=== PATIENT | female | born 1960 | race Native Hawaiian/Other Pacific Islander ===

== ENCOUNTER → 2017-12-31 | Outpatient (CLI) | payer BC ==
--- NOTE | 2017-12-31 22:39 | MR ---
EXAMINATION TYPE: MR brain wo/w con DATE OF EXAM: 12/31/2017 COMPARISON: NONE HISTORY: Post-traumatic headache TECHNIQUE: Multiplanar, multisequence images of the brain and brainstem is performed without and with IV contras t, utilizing 7.5 mL intravenous Gadavist . FINDINGS: Diffusion weighted images demonstrate no evidence of a recent infarct or other diffusion ab normality. There is no extra-axial fluid collection or significant white matter signal abnormality. The ventricular system and cisternal spaces are normal in size and appearance. The brain volume is age appropriate. T2*weighted images show no suspicious intraparenchymal blood product. Midline structures demonstrate normal morphology. The craniocervical junction appears within normal limits. Post contrast images demonstrate no abnormal enhancement. The dural venous sinuses appear pa tent. The visualized sinuses are clear and the globes are intact. IMPRESSION: No significant finding is seen to account for patient's symptoms.
== END | disposition home or self-care (01) ==
LOC: RADMRIMAIN 16:57
PROVIDERS: ATTEND Physician Assistant
DX: G44.329 Chronic post-traumatic headache, not intractable (principal)
CPT/HCPCS: 70553; A9585

== ENCOUNTER 2018-04-20 16:23 | Emergency (ER) | payer BC ==
[2018-04-20 16:34] VITALS: RESP 18
[2018-04-20] MEDS ORDERED: PANTOPRAZOLE 40 MG/10 ML VIAL IVP STA (16:57)
[2018-04-20] MEDS ORDERED: SODIUM CHLORIDE 0.9% 1,000 ML IV STA (16:57)
[2018-04-20 17:33] LABS: Basophils % (A) 0 %; Eosinophils # (A) 0.2 k/uL (0-0.7); Eosinophils % (A) 2 %; HCT 40.8 % (34.0-46.0); HGB 13.2 gm/dL (11.4-16.0); Lymphocytes # (A) 2.2 k/uL (1.0-4.8); Lymphocytes % (A) 23 %; MCH 26.9 pg (25.0-35.0); MCHC 32.3 g/dL (31.0-37.0); MCV 83.1 fL (80.0-100.0); Mean Platelet Volume 7.1; Monocytes # (A) 0.4 k/uL (0-1.0); Monocytes % (A) 4 %; Neutrophils # (A) 6.5 k/uL (1.3-7.7); Neutrophils % (A) 69 %; Platelet Count 294 k/uL (150-450); RBC 4.91 m/uL (3.80-5.40); WBC 9.5 k/uL (3.8-10.6)
[2018-04-20 17:37] LABS: Albumin 4.1 g/dL (3.5-5.0); Calcium 9.6 mg/dL (8.4-10.2); Potassium 4.3 mmol/L (3.5-5.1); Total Bilirubin 0.4 mg/dL (0.2-1.3); Total Protein 7.2 g/dL (6.3-8.2)
--- NOTE | 2018-04-20 17:51 | CT ---
EXAMINATION TYPE: CT abdomen pelvis w con DATE OF EXAM: 04/20/2018 COMPARISON: None HISTORY: lower abdominal pain, blood in stool CT DLP: 724.2 mGycm Automated exposure control for dose reduction was used. TECHNIQUE: Helical acquisition of images was performed from the lung bases through the pelvis. CONTRAST: Performed without Oral Contrast and with IV Contrast, patient injected with 100 mL of Isovue 300. FINDINGS: Lung bases are clear. There is no pleural effusion. There is subsegmental atelectasis at the lung bas es. There is no pericardial effusion. Liver spleen pancreas gallbladder appear normal. Gallbladder is contracted. Stomach appears normal. There is no adrenal mass. Kidneys show satisfactory contrast opacification. There is no hydronephrosi s. Ureters are not dilated. There is no retroperitoneal adenopathy. Bladder distends smoothly. There is no inguinal hernia. There is no free fluid in the pelvis. There is no evidence of thickened appendix. There is no mesente rebecca edema. There is no sign of free air. There is no ascites. There is hysterectomy noted. There is n o intestinal wall thickening. The bony structures are intact. IMPRESSION: NEGATIVE CT SCAN OF THE ABDOMEN AND PELVIS. MINIMAL SUBSEGMENTAL ATELECTASIS AT THE LUNG BASES.
--- NOTE | 2018-04-20 17:58 | ED ---
GI Bleed HPI - General Chief complaint: GI Bleed Stated complaint: Blood in stool Time Seen by Provider: 04/20/18 16:56 Source: patient Mode of arrival: ambulatory Limitations: no limitations - History of Present Illness Initial comments: 57-year-old female presenting today for chief complaint of lower abdominal cramping and blood in stools. Patient states she has had some mild lower abdominal cramping, she states she's also had bloody stools for the past 3 days. She states is not large amount however she notes that in the bowel movement. Patient denies any chase large amounts of blood or diarrhea. Patient denies any constipation. Patient denies any vomiting fever chills night sweats chest pain dysuria dyspnea exertion. Patient denies any chills, night sweats, cold intolerance, palpitations. Patient's last colonoscopy 3 years prior performed [address] Antoine. She denied any significant abnormalities. Remaining review of systems negative, patient denies drinking history, dizziness , hematemesis, melena, back pain, upper abdominal pain, nausea, numbness or tingling, dysuria or hematuria, vaginal bleeding, headaches or visual changes, or any other complaints. Upon arrival patient appears well. - Related Data Home Medications Medication Instructions Recorded Confirmed No Known Home Medications 08/02/15 08/02/15 Allergies Allergy/AdvReac Type Severity Reaction Status Date / Time caffeine Allergy Chest Pain Verified 04/20/18 16:29 Penicillins Allergy Rash/Hives Verified 04/20/18 16:29 Review of Systems ROS Statement: Those systems with pertinent positive or pertinent negative responses have been documented in the HPI. ROS Other: All systems not noted in ROS Statement are negative. Past Medical History Past Medical History: No Reported History History of Any Multi-Drug Resistant Organisms: None Reported Past Surgical History: Hysterectomy Past Anesthesia/Blood Transfusion Reactions: No Reported Reaction Past Psychological History: No Psychological Hx Reported Smoking Status: Former smoker Past Alcohol Use History: None Reported Past Drug Use History: None Reported - Past Family History Mother Family Medical History: Deep Vein Thrombosis (DVT) General Exam - General Exam Comments Initial Comments: General: The patient is awake and alert, in no distress, and does not appear acutely ill. Eye: Pupils are equal, round and reactive to light, extra-ocular movements are intact. No nystagmus. There is normal conjunctiva bilaterally. No signs of icterus. Ears, nose, mouth and throat: There are moist mucous membranes and no oral lesions. Neck: The neck is supple, there is no tenderness or JVD. Cardiovascular: There is a regular rate and rhythm. No murmur, rub or gallop is appreciated. Respiratory: Lungs are clear to auscultation, respirations are non-labored, breath sounds are equal. No wheezes, stridor, rales, or rhonchi. Gastrointestinal: Soft, non-distended, abdomen without masses or organomegaly noted. Mild tenderness to b/l lower abdominal region. There is no rebound or guarding present. No CVA tenderness. Bowel sounds are unremarkable. Musculoskeletal: Normal ROM, no tenderness. Strength 5/5. Sensation intact. Pulses equal bilaterally 2+. Neurological: A&O x 3. CN II-XII intact, There are no obvious motor or sensory deficits. Coordination appears grossly intact. Speech is normal. Skin: Skin is warm and dry and no rashes or lesions are noted. Psychiatric: Cooperative, appropriate mood & affect, normal judgment. Limitations: no limitations Course Vital Signs 04/20/18 04/20/18 16:30 18:45 Temperature 98.2 F 98.8 F Pulse Rate 83 66 Respiratory 18 18 Rate Blood Pressure 128/84 116/79 O2 Sat by Pulse 98 98 Oximetry Medical Decision Making - Medical Decision Making Appearing 57-year-old female. Rectal exam revealed hemorrhoids no palpable thrombosis. At the 3 o'clock position. No chase blood. Occult blood negative. Hemoglobin stable. Vital signs within normal limits. Patient estimates the pain on abdominal exam. CT negative for any diverticulosis or causes of rectal bleeding. This time feel patient is stable for discharge with outpatient follow-up with gastroenterology I did recommend repeat colonoscopy. Patient is to return for worsening bleeding or other concerning symptoms including worsening abdominal pain patient verbalizes understanding. I did discuss the case attending provider Dr. Trejo who is agreeable with plan and discharged. Patient is agreeable discharged and I question at this time. - Lab Data Result diagrams: 04/20/18 16:45 04/20/18 16:45 Lab Results 04/20/18 04/20/18 04/20/18 Range/Units 16:45 16:45 16:45 WBC 9.5 (3.8-10.6) k/uL RBC 4.91 (3.80-5.40) m/uL Hgb 13.2 (11.4-16.0) gm/dL Hct 40.8 (34.0-46.0) % MCV 83.1 (80.0-100.0) fL MCH 26.9 (25.0-35.0) pg MCHC 32.3 (31.0-37.0) g/dL RDW 14.0 (11.5-15.5) % Plt Count 294 (150-450) k/uL Neutrophils % 69 % Lymphocytes % 23 % Monocytes % 4 % Eosinophils % 2 % Basophils % 0 % Neutrophils # 6.5 (1.3-7.7) k/uL Lymphocytes # 2.2 (1.0-4.8) k/uL Monocytes # 0.4 (0-1.0) k/uL Eosinophils # 0.2 (0-0.7) k/uL Basophils # 0.0 (0-0.2) k/uL APTT 23.6 (22.0-30.0) sec Sodium 139 (137-145) mmol/L Potassium 4.3 (3.5-5.1) mmol/L Chloride 106 (98-107) mmol/L Carbon Dioxide 24 (22-30) mmol/L Anion Gap 9 mmol/L BUN 28 H (7-17) mg/dL Creatinine 0.97 (0.52-1.04) mg/dL Est GFR (CKD-EPI)AfAm 75 (>60 ml/min/1.73 sqM) Est GFR (CKD-EPI)NonAf 65 (>60 ml/min/1.73 sqM) Glucose 94 (74-99) mg/dL Plasma Lactic Acid Jason (0.7-2.0) mmol/L Calcium 9.6 (8.4-10.2) mg/dL Total Bilirubin 0.4 (0.2-1.3) mg/dL AST 22 (14-36) U/L ALT 28 (9-52) U/L Alkaline Phosphatase 74 (38-126) U/L Troponin I (0.000-0.034) ng/mL Total Protein 7.2 (6.3-8.2) g/dL Albumin 4.1 (3.5-5.0) g/dL Stool Occult Blood (Negative) 04/20/18 04/20/18 04/20/18 Range/Units 16:45 16:45 17:00 WBC (3.8-10.6) k/uL RBC (3.80-5.40) m/uL Hgb (11.4-16.0) gm/dL Hct (34.0-46.0) % MCV (80.0-100.0) fL MCH (25.0-35.0) pg MCHC (31.0-37.0) g/dL RDW (11.5-15.5) % Plt Count (150-450) k/uL Neutrophils % % Lymphocytes % % Monocytes % % Eosinophils % % Basophils % % Neutrophils # (1.3-7.7) k/uL Lymphocytes # (1.0-4.8) k/uL Monocytes # (0-1.0) k/uL Eosinophils # (0-0.7) k/uL Basophils # (0-0.2) k/uL APTT (22.0-30.0) sec Sodium (137-145) mmol/L Potassium (3.5-5.1) mmol/L Chloride (98-107) mmol/L Carbon Dioxide (22-30) mmol/L Anion Gap mmol/L BUN (7-17) mg/dL Creatinine (0.52-1.04) mg/dL Est GFR (CKD-EPI)AfAm (>60 ml/min/1.73 sqM) Est GFR (CKD-EPI)NonAf (>60 ml/min/1.73 sqM) Glucose (74-99) mg/dL Plasma Lactic Acid Jason 0.8 (0.7-2.0) mmol/L Calcium (8.4-10.2) mg/dL Total Bilirubin (0.2-1.3) mg/dL AST (14-36) U/L ALT (9-52) U/L Alkaline Phosphatase (38-126) U/L Troponin I <0.012 (0.000-0.034) ng/mL Total Protein (6.3-8.2) g/dL Albumin (3.5-5.0) g/dL Stool Occult Blood Negative (Negative) - EKG Data EKG Comments: A 12-lead EKG was performed and shows the following: Rate is 66bpm, and rhythm is normal sinus. There are normal QRS complexes and normal R-wave progression. ST segments have no elevation or depression, and MD segments appear normal. MD interval 158 ms, QR sikh 84 ms, QT/QTC 416/436 ms. Nonspecific T-wave abnormality. Disposition Clinical Impression: Rectal bleeding Disposition: HOME SELF-CARE Condition: Good Instructions (If sedation given, give patient instructions): Rectal Bleeding ( ED) Additional Instructions: Please use medication as discussed. Please follow-up with family doctor in the next 2 days, these follow-up with gastroenterology as discussed. Please return to emergency room if the symptoms increase or worsen or for any other concerns. Is patient prescribed a controlled substance at d/c from ED?: No Referrals: Dwayne Quintana MD [Primary Care Provider] - 1-2 days Priscilla Antoine MD [STAFF PHYSICIAN] - 1-2 days Time of Disposition: 17:57
[2018-04-20 18:55] VITALS: BP 116/79; PULSE 66; TEMP 98.8
== END 2018-04-20 18:45 | disposition home or self-care (01) ==
LOC: EC 16:23
DX: K62.5 Hemorrhage of anus and rectum (principal); K64.9 Unspecified hemorrhoids; Z87.891 Personal history of nicotine dependence; Z88.0 Allergy status to penicillin; Z91.018 Allergy to other foods
CPT/HCPCS: 36415; 80053; 83605; 84484; 85025; 85730; 82272; 74177; 99285; 96374; 96361; C9113; Q9967; 99284

== ENCOUNTER → 2020-02-15 | Outpatient (CLI) | payer BC | END | disposition home or self-care (01) | LOC: LABWHC1 12:30 | PROVIDERS: ATTEND Emergency Medicine | DX: Z20.828 Contact with and (suspected) exposure to other viral communicable diseases (principal) | CPT/HCPCS: U0003; C9803 ==

== ENCOUNTER 2020-03-29 14:15 | Observation (INO) | payer BC ==
[2020-03-29] MEDS ORDERED: ASPIRIN 81 MG PO STA (14:52)
[2020-03-29] MEDS ORDERED: NITROGLYCERIN OINT 1 INCH/GM PACKET TOPICAL STA (14:52)
--- NOTE | 2020-03-29 15:02 | ED ---
General Adult HPI - General Chief complaint: Chest Pain Stated complaint: Chest pain Time Seen by Provider: 03/29/20 14:20 Source: patient, RN notes reviewed, old records reviewed Mode of arrival: ambulatory Limitations: no limitations - History of Present Illness Initial comments: This a 59-year-old female presents emergency Department with no significant past medical history. Patient denies any family history of heart disease. Patient comes in today because she had an episode of chest pain last week which also she states is associated with the veins in her hands disappearing. She states today she had multiple episodes of chest pain and again she feels as though the veins in her hands also disappeared when this occurs. Patient states she short of breath and also feels lightheaded when this occurs. Patient denies any recent fever chills or cough per patient denies any palpitations. Patient denies any abdominal pain patient denies any back pain patient denies any nausea vomiting diarrhea. Patient denies any swelling to legs or calf tenderness. Patient states currently she is asymptomatic - Related Data Home Medications Medication Instructions Recorded Confirmed No Known Home Medications 08/02/15 03/29/20 Allergies Allergy/AdvReac Type Severity Reaction Status Date / Time caffeine Allergy Chest Pain Verified 03/29/20 16:30 Penicillins Allergy Rash/Hives Verified 03/29/20 16:30 Review of Systems ROS Statement: Those systems with pertinent positive or pertinent negative responses have been documented in the HPI. ROS Other: All systems not noted in ROS Statement are negative. Past Medical History Past Medical History: No Reported History History of Any Multi-Drug Resistant Organisms: None Reported Past Surgical History: Hysterectomy Past Anesthesia/Blood Transfusion Reactions: No Reported Reaction Past Psychological History: No Psychological Hx Reported Past Alcohol Use History: Occasional Past Drug Use History: None Reported - Past Family History Mother Family Medical History: Deep Vein Thrombosis (DVT) General Exam - General Exam Comments Initial Comments: GENERAL: Patient is well-developed and well-nourished. Patient is nontoxic and well- hydrated and is in no acute distress. ENT: Neck is soft and supple. No significant lymphadenopathy is noted. Oropharynx is clear. Moist mucous membranes. Neck has full range of motion without eliciting any pain. EYES: The sclera were anicteric and conjunctiva were pink and moist. Extraocular movements were intact and pupils were equal round and reactive to light. Eyelids were unremarkable. PULMONARY: Unlabored respirations. Good breath sounds bilaterally. No audible rales rhonchi or wheezing was noted. CARDIOVASCULAR: There is a regular rate and rhythm without any murmurs gallops or rubs. ABDOMEN: Soft and nontender with normal bowel sounds. SKIN: Skin is clear with no lesions or rashes and otherwise unremarkable. NEUROLOGIC: Patient is alert and oriented x3. Cranial nerves II through XII are grossly intact. Motor and sensory are also intact. Normal speech, volume and content. Symmetrical smile. MUSCULOSKELETAL: Normal extremities with adequate strength and full range of motion. LYMPHATICS: No significant lymphadenopathy is noted PSYCHIATRIC: Normal psychiatric evaluation. Limitations: no limitations Course Vital Signs 03/29/20 03/29/20 03/29/20 14:22 14:55 16:37 Temperature 98 F 98 F Pulse Rate 72 69 Pulse Rate [ 60 [employer] ] Respiratory 18 16 18 Rate Blood Pressure 167/102 140/86 O2 Sat by Pulse 100 97 Oximetry Medical Decision Making - Medical Decision Making EKG shows normal sinus rhythm at 65 bpm WA interval 156 QRS is 80 QT interval 400 QTC is 416. Patient's EKG shows no ST segment elevation or depression. Chest x-ray shows no acute normalities. I spoke with Dr. Ortiz he agrees to admit the patient admitted the patient wrote admitting orders I consult cardiology. - Lab Data Result diagrams: 03/29/20 15:10 03/29/20 15:10 Lab Results 03/29/20 03/29/20 03/29/20 Range/Units 15:10 15:10 15:10 WBC 6.5 (3.8-10.6) k/uL RBC 4.79 (3.80-5.40) m/uL Hgb 13.0 (11.4-16.0) gm/dL Hct 40.0 (34.0-46.0) % MCV 83.4 (80.0-100.0) fL MCH 27.2 (25.0-35.0) pg MCHC 32.6 (31.0-37.0) g/dL RDW 13.6 (11.5-15.5) % Plt Count 253 (150-450) k/uL MPV 7.1 Neutrophils % 58 % Lymphocytes % 32 % Monocytes % 6 % Eosinophils % 1 % Basophils % 1 % Neutrophils # 3.8 (1.3-7.7) k/uL Lymphocytes # 2.1 (1.0-4.8) k/uL Monocytes # 0.4 (0-1.0) k/uL Eosinophils # 0.1 (0-0.7) k/uL Basophils # 0.0 (0-0.2) k/uL PT 9.9 (9.0-12.0) sec INR 0.9 (<1.2) APTT 23.2 (22.0-30.0) sec Sodium 136 L (137-145) mmol/L Potassium 4.1 (3.5-5.1) mmol/L Chloride 104 (98-107) mmol/L Carbon Dioxide 22 (22-30) mmol/L Anion Gap 10 mmol/L BUN 24 H (7-17) mg/dL Creatinine 0.76 (0.52-1.04) mg/dL Est GFR (CKD-EPI)AfAm >90 (>60 ml/min/1.73 sqM) Est GFR (CKD-EPI)NonAf 87 (>60 ml/min/1.73 sqM) Glucose 100 H (74-99) mg/dL Calcium 9.2 (8.4-10.2) mg/dL Magnesium 2.1 (1.6-2.3) mg/dL Total Bilirubin 0.4 (0.2-1.3) mg/dL AST 33 (14-36) U/L ALT 21 (4-34) U/L Alkaline Phosphatase 86 (38-126) U/L Troponin I (0.000-0.034) ng/mL Total Protein 7.3 (6.3-8.2) g/dL Albumin 4.3 (3.5-5.0) g/dL 03/29/20 Range/Units 15:10 WBC (3.8-10.6) k/uL RBC (3.80-5.40) m/uL Hgb (11.4-16.0) gm/dL Hct (34.0-46.0) % MCV (80.0-100.0) fL MCH (25.0-35.0) pg MCHC (31.0-37.0) g/dL RDW (11.5-15.5) % Plt Count (150-450) k/uL MPV Neutrophils % % Lymphocytes % % Monocytes % % Eosinophils % % Basophils % % Neutrophils # (1.3-7.7) k/uL Lymphocytes # (1.0-4.8) k/uL Monocytes # (0-1.0) k/uL Eosinophils # (0-0.7) k/uL Basophils # (0-0.2) k/uL PT (9.0-12.0) sec INR (<1.2) APTT (22.0-30.0) sec Sodium (137-145) mmol/L Potassium (3.5-5.1) mmol/L Chloride (98-107) mmol/L Carbon Dioxide (22-30) mmol/L Anion Gap mmol/L BUN (7-17) mg/dL Creatinine (0.52-1.04) mg/dL Est GFR (CKD-EPI)AfAm (>60 ml/min/1.73 sqM) Est GFR (CKD-EPI)NonAf (>60 ml/min/1.73 sqM) Glucose (74-99) mg/dL Calcium (8.4-10.2) mg/dL Magnesium (1.6-2.3) mg/dL Total Bilirubin (0.2-1.3) mg/dL AST (14-36) U/L ALT (4-34) U/L Alkaline Phosphatase (38-126) U/L Troponin I <0.012 (0.000-0.034) ng/mL Total Protein (6.3-8.2) g/dL Albumin (3.5-5.0) g/dL Disposition Clinical Impression: Chest pain Disposition: ADMITTED IP TO THIS [facility] Referrals: Gerald Cardenas Jr, [Primary Care Provider] - 1-2 days Time of Disposition: 16:49
[2020-03-29 15:20] LABS: Basophils % (A) 1 %; Eosinophils # (A) 0.1 k/uL (0-0.7); Eosinophils % (A) 1 %; Lymphocytes # (A) 2.1 k/uL (1.0-4.8); Lymphocytes % (A) 32 %; MCH 27.2 pg (25.0-35.0); MCHC 32.6 g/dL (31.0-37.0); MCV 83.4 fL (80.0-100.0); Mean Platelet Volume 7.1; Monocytes # (A) 0.4 k/uL (0-1.0); Monocytes % (A) 6 %; Neutrophils # (A) 3.8 k/uL (1.3-7.7); Neutrophils % (A) 58 %; Platelet Count 253 k/uL (150-450); RBC 4.79 m/uL (3.80-5.40); RDW 13.6 % (11.5-15.5); WBC 6.5 k/uL (3.8-10.6)
[2020-03-29 15:30] LABS: ALT 21 U/L (4-34); AST 33 U/L (14-36); African American GFR (CKD) >90 (>60 ml/min/1.73 sqM); Albumin 4.3 g/dL (3.5-5.0); Alkaline Phosphatase 86 U/L (38-126); Anion Gap 10 mmol/L; Blood Urea Nitrogen 24 mg/dL (7-17); Calcium 9.2 mg/dL (8.4-10.2); Carbon Dioxide 22 mmol/L (22-30); Chloride 104 mmol/L (98-107); Glucose 100 mg/dL (74-99); Magnesium 2.1 mg/dL (1.6-2.3); Non-African American GFR(CKD) 87 (>60 ml/min/1.73 sqM); Potassium 4.1 mmol/L (3.5-5.1); Sodium 136 mmol/L (137-145); Total Bilirubin 0.4 mg/dL (0.2-1.3); Total Protein 7.3 g/dL (6.3-8.2)
[2020-03-29 15:33] LABS: INR 0.9 (<1.2); Partial Thromboplastin Time 23.2 sec (22.0-30.0); Prothrombin Time 9.9 sec (9.0-12.0)
--- NOTE | 2020-03-29 15:34 | XR ---
EXAMINATION TYPE: XR chest 2V DATE OF EXAM: 03/29/2020 COMPARISON: NONE TECHNIQUE: PA and lateral views submitted. HISTORY: Chest pain FINDINGS: The lungs are clear and there is no pneumothorax, pleural effusion, or focal pneumonia. Hyperinflat ion of the lungs. Coarsened interstitium. Mild cardiomegaly. IMPRESSION: 1. Cardiomegaly correlate for COPD. Coarsened interstitium could reflect chronic interstitial lung di sease or bronchitis. No prior exams available. Underlying interstitial pneumonitis not excluded..
[2020-03-29] MEDS ORDERED: NITROGLYCERIN SL TABS 0.4 MG TAB SUBLINGUAL PRN (16:50)
[2020-03-29] MEDS: NITROGLYCERIN OINT 1 INCH/GM PACKET TOPICAL SCH ×2 (17:59→23:11)
[2020-03-29] MEDS ORDERED: ACETAMINOPHEN TAB 325 MG TAB PO PRN (21:21)
[2020-03-30] MEDS: NITROGLYCERIN OINT 1 INCH/GM PACKET TOPICAL SCH (05:53)
[2020-03-30 07:36] VITALS: RESP 16; TEMP 98.2
[2020-03-30] MEDS ORDERED: ASPIRIN 325 MG TAB PO SCH (09:00)
[2020-03-30] MEDS ORDERED: PANTOPRAZOLE 40 MG/10 ML VIAL IVP SCH (09:15)
[2020-03-30 09:18] LABS: Chol/HDL Ratio 3.51; LDL Cholesterol,Calculated 99.8 mg/dL (0.0-131.0); VLDL Calculation 23.2 mg/dL (5.00-40.00)
--- NOTE | 2020-03-30 09:27 | P.CRDCN ---
History of Present Illness History of present illness: HISTORY OF PRESENTING ILLNESS This is a pleasant 59-year-old female past medical history significant for former nicotine dependence. 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 We have been asked to see in consultation for chest pain. For the previous couple of days she has been experiencing intermittent episodes of bilateral arm heaviness, shortness of breath, difficulty taking in a deep breath and tightness in the chest. The tightness in the chest seems to be mostly associated with deep inspiration. The pain is not related to activity or exertion. The discomfort is not reproducible on palpation. She also describes feeling pain in her hands that she describes as "pain in my veins" she states at times it seems as though her veins disappear. She denies nausea, vomiting, dizziness or palpitations. DIAGNOSTICS EKG reveals has mechanism with T-wave inversions in the anterior leads, similar to previous EKG in 2019. Telemetry tracings indicate sinus mechanism with no acute arrhythmia Chest xray coarsened interstitium could reflect chronic interstitial lung disease or bronchitis. Laboratory reviewed, CBC unremarkable, sodium 136, potassium 4.1, creatinine 0.76, cardiac enzymes negative 3, LDL 99 and HDL 49. She takes no daily cardiac medications. REVIEW OF SYSTEMS At the time of my exam: CONSTITUTIONAL: Denies fever or chills. CARDIOVASCULAR: Denies chest pain, shortness of breath, orthopnea, PND or palp itations. RESPIRATORY: Denies cough. GASTROINTESTINAL: Denies abdominal pain, diarrhea, constipation, nausea or vomiting. MUSCULOSKELETAL: Denies myalgias. NEUROLOGIC: Denies numbness, tingling, headacbe or weakness. ENDOCRINE: Denies fatigue, weight change, polydipsia or polyurina. GENITOURINARY: Denies burning, hematuria or urgency with micturation. HEMATOLOGIC: Denies history of anemia or bleeding. PHYSICAL EXAMINATION Blood pressure 110/77 heart rate 59 afebrile and maintaining oxygen saturation on room air. CONSTITUTIONAL: No apparent distress. HEENT: Head is normocephalic. Pupils are equal, round. Sclerae anicteric. Mucous membranes of the mouth are moist. No JVD. No carotid bruit. CHEST EXAMINATION: Lungs are clear to auscultation. No chest wall tenderness is noted on palpation or with deep breathing. HEART EXAMINATION: Regular rate and rhythm. S1, S2 heard. No murmurs, gallops or rub. ABDOMEN: Soft, nontender. Positive bowel sounds. EXTREMITIES: 2+ peripheral pulses, no lower extremity edema and no calf tenderness. NEUROLOGIC EXAMINATION: Patient is awake, alert and oriented x3. ASSESSMENT Chest pain, atypical for angina Possible bronchitis PLAN An acute coronary event has been ruled out. Obtain 2-D echocardiogram and Doppler study to assess cardiac structure and function. Perform stress echocardiogram to assess for stress-induced cardiac ischemia. If stress test is normal she may be discharged from a cardiac perspective. Thank you kindly for this consultation. Nurse Practitioner note has been reviewed, I agree with a documented findings and plan of care. Patient was seen and examined. Past Medical History Past Medical History: No Reported History History of Any Multi-Drug Resistant Organisms: None Reported Past Surgical History: Hysterectomy Past Anesthesia/Blood Transfusion Reactions: No Reported Reaction Past Psychological History: No Psychological Hx Reported Smoking Status: Former smoker Past Alcohol Use History: Occasional Additional Past Alcohol Use History / Comment(s): quit smoking 4 years ago, was social smoker for 10 years Past Drug Use History: None Reported - Past Family History Mother Family Medical History: Deep Vein Thrombosis (DVT) Medications and Allergies Home Medications Medication Instructions Recorded Confirmed Type No Known Home Medications 08/02/15 03/29/20 History Allergies Allergy/AdvReac Type Severity Reaction Status Date / Time caffeine Allergy Chest Pain Verified 03/29/20 16:30 Penicillins Allergy Rash/Hives Verified 03/29/20 16:30 Physical Exam Vitals: Vital Signs Temp Pulse Pulse Pulse Resp BP BP 03/30/20 07:00 98.2 F 59 L 16 110/70 03/30/20 02:00 97.8 F 66 18 97/59 03/29/20 20:00 97.9 F 95 18 121/78 03/29/20 18:34 66 16 129/86 03/29/20 17:22 97.9 F 64 18 121/78 03/29/20 16:37 98 F 69 18 140/86 03/29/20 14:55 60 16 03/29/20 14:22 98 F 72 18 167/102 Pulse Ox 03/30/20 07:00 96 03/30/20 02:00 95 03/29/20 20:00 97 03/29/20 18:34 100 03/29/20 17:22 95 03/29/20 16:37 97 03/29/20 14:55 03/29/20 14:22 100 Intake and Output 03/29/20 03/30/20 03/30/20 22:59 06:59 14:59 Intake Total 540 Balance 540 Intake: Oral 540 Other: Voiding Method Toilet Toilet Toilet # Voids 2 1 Weight 73.482 kg Results 03/29/20 15:10 03/29/20 15:10 Cardiac Enzymes 03/29/20 03/29/20 03/29/20 Range/Units 15:10 15:10 18:15 AST 33 (14-36) U/L Troponin I <0.012 <0.012 (0.000-0.034) ng/mL 03/29/20 Range/Units 21:00 AST (14-36) U/L Troponin I <0.012 (0.000-0.034) ng/mL Coagulation 03/29/20 Range/Units 15:10 PT 9.9 (9.0-12.0) sec APTT 23.2 (22.0-30.0) sec CBC 03/29/20 Range/Units 15:10 WBC 6.5 (3.8-10.6) k/uL RBC 4.79 (3.80-5.40) m/uL Hgb 13.0 (11.4-16.0) gm/dL Hct 40.0 (34.0-46.0) % Plt Count 253 (150-450) k/uL Comprehensive Metabolic Panel 03/29/20 Range/Units 15:10 Sodium 136 L (137-145) mmol/L Potassium 4.1 (3.5-5.1) mmol/L Chloride 104 (98-107) mmol/L Carbon Dioxide 22 (22-30) mmol/L BUN 24 H (7-17) mg/dL Creatinine 0.76 (0.52-1.04) mg/dL Glucose 100 H (74-99) mg/dL Calcium 9.2 (8.4-10.2) mg/dL AST 33 (14-36) U/L ALT 21 (4-34) U/L Alkaline Phosphatase 86 (38-126) U/L Total Protein 7.3 (6.3-8.2) g/dL Albumin 4.3 (3.5-5.0) g/dL Current Medications Generic Name Dose Route Start Last Admin Trade Name Freq PRN Reason Stop Dose Admin Acetaminophen 650 mg 03/29/20 21:21 03/29/20 21:52 Acetaminophen Tab 325 Mg Tab PO 650 mg Q6HR PRN Administration Fever and/ or Pain Aspirin 325 mg 03/30/20 09:00 Aspirin 325 Mg Tab PO DAILY SUMMER Nitroglycerin 0.4 mg 03/29/20 16:50 Nitroglycerin Sl Tabs 0.4 Mg Tab SUBLINGUAL Q5M PRN Chest Pain Nitroglycerin 1 inch 03/29/20 18:00 03/30/20 05:53 Nitroglycerin Oint 1 Inch/Gm Packet TOPICAL Not Given Q6HR SUMMER Intake and Output 03/29/20 03/30/20 03/30/20 22:59 06:59 14:59 Intake Total 540 Balance 540 Intake: Oral 540 Other: Voiding Method Toilet Toilet Toilet # Voids 2 1 Weight 73.482 kg 03/29/20 15:10 03/29/20 15:10
--- NOTE | 2020-03-30 10:55 | ECHOF ---
Referral Reason:cp MEASUREMENTS -------- HEIGHT: 165.1 cm WEIGHT: 73.5 kg BP: RVIDd: 3.1 cm (< 3.3) IVSd: 1.1 cm (0.6 - 1.1) LVIDd: 4.6 cm (3.9 - 5.3) LVPWd: 1.2 cm (0.6 - 1.1) IVSs: 1.5 cm LVIDs: 3.2 cm LVPWs: 1.4 cm LAESV Index (A-L): 23.54 ml/m Ao Diam: 3.2 cm (2.0 - 3.7) AV Cusp: 1.7 cm (1.5 - 2.6) MV EXCURSION: 11.106 mm (> 18.000) MV EF SLOPE: 66 mm/s (70 - 150) EPSS: 0.5 cm MV E Tanner: 0.66 m/s MV DecT: 227 ms MV A Tanner: 0.65 m/s MV E/A Ratio: 1.02 RAP: 5.00 mmHg RVSP: 24.79 mmHg FINDINGS -------- Sinus rhythm. This was a technically adequate study. LV size, wall thickness and systolic function are normal, with an EF greater than 55%. The left janna tricular size is normal. The diastolic filling pattern is normal for the age of the patient 12.19. The right ventricle is normal in size. Normal LA size by volume 22+/-6 ml/m2. The right atrial size is normal. The aortic valve is trileaflet, and appears structurally normal. No aortic stenosis or regurgitation. The mitral valve is normal. Mild mitral regurgitation is present. The tricuspid valve appears structurally normal. Mild tricuspid regurgitation present. Right vent ricular systolic pressure is normal at < 35 mmHg. There is no pulmonic regurgitation present. There is no pericardial effusion. CONCLUSIONS -------- 1. LV size, wall thickness and systolic function are normal, with an EF greater than 55%. 2. Normal LA size by volume 22+/-6 ml/m2. 3. The aortic valve is trileaflet, and appears structurally normal. No aortic stenosis or regurgitati on. 4. Mild mitral regurgitation is present. 5. Mild tricuspid regurgitation present. 6. There is no pericardial effusion. SALES OFFICE MANAGER: Taina Ibarra RDCS
[2020-03-30] MEDS ORDERED: LEVOFLOXACIN 500MG-D5W PMX 500 MG in DEXTROSE/WATER 1 100ML.BAG IVPB SCH (11:00)
--- NOTE | 2020-03-30 12:12 | CT ---
EXAMINATION TYPE: CT brain wo con DATE OF EXAM: 03/30/2020 COMPARISON: None HISTORY: Posterior headache, ongoing CT DLP: 1017.90 mGycm Automated exposure control for dose reduction was used. FINDINGS: Ventricular system midline. No acute intracranial hemorrhage or mass effect. No midline shift. Calvar ium intact. Cerebellar tonsils low-lying in position at the level of foramen magnum. IMPRESSION: NO ACUTE HEMORRHAGE OR MASS EFFECT. IF SYMPTOMS PERSIST CONSIDER MRI.
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
[2020-03-30 14:04] VITALS: BP 91/58
[2020-03-30 14:08] VITALS: PULSE 60
--- NOTE | 2020-03-30 14:12 | ECHOS ---
STRESS ECHOCARDIOGRAM LUMASON: N/A Vial INDICATIONS: Chest pain MEDICATIONS: BASELINE HEART RATE: 65 BASELINE BLOOD PRESSURE: 127/86 MAXIMUM HEART RATE: 148 MAXIMUM BLOOD PRESSURE: 170/96 85% MPHR: 137 100% MPHR: 161 METS: 10.3 MAXIMUM STAGE REACHED: 3 TOTAL EXERCISE TIME: 9 minutes CLINICAL INFORMATION: Baseline rhythm is sinus mechanism, rate 65, normal axis, T-wave inversion anteriorly. Baseline blood pressure 127/86 mmHg. Patient exercised on Choco protocol for 9 minutes reaching peak rate 148 beats per minute which is equal to 92% of maximum predicted heart rate. Peak blood pressure 170/96 mmHg. Test was terminated secondary to fatigue. There was no chest pain. Electrocardiograph monitoring revealed no evidence of diagnostic ischemic ST deviation. Baseline echocardiogram revealed normal wall motion. At peak exercise, there was normal wall motion augmentation with no hypokinesis or dyskinesis. CONCLUSION: 1. Average exercise tolerance with nondiagnostic electrocardiograph stress testing secondary to baseline EKG abnormality. 2. Normal stress echocardiogram with no evidence of stress-induced ischemia. MMODL / IJN: [id number] /
[2020-03-31] MEDS ORDERED: ASPIRIN 81 MG PO SCH (09:00)
== END 2020-03-30 15:13 | disposition home or self-care (01) ==
LOC: EC 14:15 → 6NMEDSUR 16:50
PROVIDERS: ADMIT Family Medicine; ATTEND Family Medicine
DX: R07.89 Other chest pain (principal); R42 Dizziness and giddiness; M79.641 Pain in right hand; M79.642 Pain in left hand; M54.2 Cervicalgia; R51.9 Headache, unspecified; M25.572 Pain in left ankle and joints of left foot; M25.571 Pain in right ankle and joints of right foot; E66.9 Obesity, unspecified; Z68.27 Body mass index [BMI] 27.0-27.9, adult; J44.9 Chronic obstructive pulmonary disease, unspecified; Z87.891 Personal history of nicotine dependence; Z87.828 Personal history of other (healed) physical injury and trauma; Z88.0 Allergy status to penicillin; Z91.018 Allergy to other foods; Z90.710 Acquired absence of both cervix and uterus; Z82.49 Family history of ischemic heart disease and other diseases of the circulatory system; Z20.822 Contact with and (suspected) exposure to COVID-19
CPT/HCPCS: 96374; 93005 ×2; 99285; 36415; 93306; 93351; 80061; 80053; 83735; 84484; 85025; 85610; 85730; 87635; 71046; 70450; G0378 ×2; C9113

== ENCOUNTER → 2020-04-19 | Outpatient (CLI) | payer BC | END | disposition home or self-care (01) | LOC: LABWHC1 16:41 | PROVIDERS: ATTEND Emergency Medicine | DX: Z20.822 Contact with and (suspected) exposure to COVID-19 (principal) | CPT/HCPCS: U0003; C9803; U0005 ==

== ENCOUNTER → 2021-04-06 | Outpatient (CLI) | payer BC ==
--- NOTE | 2021-04-07 13:33 | MM ---
Reason for exam: screening (asymptomatic). Last mammogram was performed 5 years and 8 months ago. History: Patient is postmenopausal. Family history of breast cancer in mother at age 84. Physical Findings: A clinical breast exam by your physician is recommended on an annual basis and results should be correlated with mammographic findings. MG Screening Mammo w CAD Bilateral CC and MLO view(s) were taken. Prior study comparison: August 17, 2015, bilateral MG screening mammo w CAD. January 30, 2006, CAD bilateral diagnostic mammogram. The breast tissue is heterogeneously dense. This may lower the sensitivity of mammography. Stable benign calcifications right breast. No significant changes when compared with prior studies. ASSESSMENT: Benign, BI-RAD 2 RECOMMENDATION: Routine screening mammogram of both breasts in 1 year.
== END | disposition home or self-care (01) ==
LOC: RADMAMWWP 14:26
PROVIDERS: ATTEND Family Medicine
DX: Z12.31 Encounter for screening mammogram for malignant neoplasm of breast (principal); Z78.0 Asymptomatic menopausal state; Z80.3 Family history of malignant neoplasm of breast
CPT/HCPCS: 77067

== ENCOUNTER 2021-09-14 13:34 | Emergency (ER) | payer BC, OTHER ==
[2021-09-14 14:06] VITALS: RESP 18; TEMP 98.4
[2021-09-14] MEDS ORDERED: KETOROLAC 15 MG/ML 1 ML VIAL IM STA (14:16)
--- NOTE | 2021-09-14 14:48 | XR ---
EXAMINATION TYPE: XR Hip RT and AP Pelvis DATE OF EXAM: 09/14/2021 COMPARISON: None HISTORY: Injury from fall TECHNIQUE: AP pelvis 2 view right hip FINDINGS: Femoral head articulates with the acetabulum. No acute fracture or dislocation is evident. Symphysis pubis and sacroiliac joints are normal. Follow-up exams performed as clinically indicated IMPRESSION: 1. No acute osseous abnormality right hip
--- NOTE | 2021-09-14 14:53 | XR ---
EXAMINATION TYPE: XR knee complete RT DATE OF EXAM: 09/14/2021 COMPARISON: None HISTORY: Injury from fall TECHNIQUE: 3 view right knee FINDINGS: Joint spaces are preserved. No acute fracture or dislocation is evident. No joint effusion is evident. Follow up exams can be performed 7-10 days from acute trauma for continued pain. IMPRESSION: 1. No acute osseous abnormality right knee
[2021-09-14] MEDS ORDERED: ORPHENADRINE 30 MG/ML 2 ML VIAL IM STA (15:26)
--- NOTE | 2021-09-14 15:37 | ED ---
Fall HPI - General Chief Complaint: Fall Stated Complaint: right hip injury Time Seen by Provider: 09/14/21 14:09 Source: patient, family Mode of arrival: wheelchair - History of Present Illness Initial Comments: Patient is a 61-year-old female presenting with chief complaint of right-sided knee and hip pain. The patient fell while at work tripping over a been on the floor. She denies any head injury, loss of consciousness, use of blood thinners. There is pain to the right hip and knee with weightbearing and ambulation. She denies any numbness, tingling, weakness, redness, swelling. - Related Data Home Medications Medication Instructions Recorded Confirmed No Known Home Medications 08/02/15 03/29/20 Allergies Allergy/AdvReac Type Severity Reaction Status Date / Time caffeine Allergy Chest Pain Verified 09/14/21 14:05 Penicillins Allergy Rash/Hives Verified 09/14/21 14:05 Review of Systems ROS Statement: Those systems with pertinent positive or pertinent negative responses have been documented in the HPI. ROS Other: All systems not noted in ROS Statement are negative. Past Medical History Past Medical History: No Reported History History of Any Multi-Drug Resistant Organisms: None Reported Past Surgical History: Hysterectomy Past Anesthesia/Blood Transfusion Reactions: No Reported Reaction Past Psychological History: No Psychological Hx Reported Smoking Status: Former smoker Past Alcohol Use History: Occasional Past Drug Use History: None Reported - Past Family History Mother Family Medical History: Deep Vein Thrombosis (DVT) General Exam Limitations: no limitations General appearance: alert, in no apparent distress Head exam: Present: atraumatic, normocephalic, normal inspection Eye exam: Present: normal appearance, PERRL, EOMI. Absent: scleral icterus, periorbital swelling Neck exam: Present: normal inspection, full ROM Respiratory exam: Present: normal lung sounds bilaterally. Absent: respiratory distress, wheezes, rales, rhonchi, stridor Cardiovascular Exam: Present: regular rate, normal rhythm, normal heart sounds. Absent: systolic murmur, diastolic murmur, rubs, gallop, clicks Extremities exam: Present: normal inspection. Absent: full ROM (Limited at the right knee and hip secondary to pain), tenderness Neurological exam: Present: alert, oriented X3, CN II-XII intact Expanded Patient oriented to: Present: person, place, time Speech: Present: fluid speech Cranial nerves: EOM's Intact: Normal, Tongue Deviation: Normal, Facial Sensation: Normal Cerebellar function: Finger to Nose: Normal Sensory exam: Upper Extremity Light Touch: Normal, Lower Extremity Light Touch: Normal Motor strength exam: RUE: 5, LUE: 5, RLE: 5, LLE: 5 Eye Response: (4) open spontaneously Verbal Response: (5) oriented Phil Total: 15 Psychiatric exam: Present: normal affect, normal mood Skin exam: Present: warm, dry, intact, normal color. Absent: rash Course Vital Signs 09/14/21 09/14/21 14:01 16:14 Temperature 98.4 F Pulse Rate 92 76 Respiratory 18 18 Rate Blood Pressure 131/87 139/96 O2 Sat by Pulse 95 99 Oximetry Medical Decision Making - Medical Decision Making Patient is a 61-year-old female presenting with chief complaint of right hip and knee pain. Patient was at work when she tripped on a been on the floor, landing on her knee. Patient denies any head injury, loss of consciousness, use of blood thinners. She is complaining of pain near the inferior portion of the right knee, as well as right-sided hip pain. There is pain with range of motion. There are no focal neurological deficits on exam. X-ray of the hip and knee show no acute osseous abnormality. Patient was given pain medication. Patient is instructed to follow-up with PCP 1-2 days. Report back to ER with any new or worsening symptoms. Discussed return parameters answered all questions. I discussed supportive treatment with Motrin, Tylenol, rest, ice, compression, elevation. Patient conveyed verbal understanding and agreed to the plan. I discussed this case with my attending Dr. Trejo. Disposition Clinical Impression: Knee pain, Hip pain Disposition: HOME SELF-CARE Condition: Good Instructions (If sedation given, give patient instructions): Knee Pain (ED), Hip Pain (ED) Additional Instructions: Follow-up with PCP in one to 2 days. Report back to ER with any new or worsening symptoms. Take Motrin and Tylenol as needed for pain control. Ice, rest, elevate, compress with Wilner wrap for symptomatic management. Is patient prescribed a controlled substance at d/c from ED?: No Referrals: Dwayne Quintana MD [Primary Care Provider] - 1-2 days Time of Disposition: 15:37
[2021-09-14 16:15] VITALS: BP 139/96; PULSE 76
== END 2021-09-14 16:15 | disposition home or self-care (01) ==
LOC: EC 13:34
DX: M25.561 Pain in right knee (principal); M25.551 Pain in right hip; Z87.891 Personal history of nicotine dependence; Z88.0 Allergy status to penicillin; Z91.018 Allergy to other foods; W01.0XXA Fall on same level from slipping, tripping and stumbling without subsequent striking against object, initial encounter; Y99.0 Civilian activity done for income or pay
CPT/HCPCS: 73502; 73562; 99283; 96372; J2360; J1885

== ENCOUNTER → 2023-05-08 | Outpatient (CLI) | payer BC ==
--- NOTE | 2023-05-09 07:50 | MM ---
Reason for Exam: Screening (asymptomatic). Last mammogram was performed 2 year(s) and 1 month(s) ago. Patient History: Menarche at age 12. First Full-Term at age 16. Left ovary removed at age 47. Right ovary removed at age 47. Hysterectomy at age 47. Postmenopausal. Mother had breast cancer, age 84. Risk Values: Lena 5 year model risk: 2.8%. NCI Lifetime model risk: 12.5%. Prior Study Comparison: 01/30/2006 Bilateral Diagnostic Mammogram, [facility]. 08/17/2015 Bilateral Screening Mammogram, [facility]. 04/06/2021 Bilateral Screening Mammogram, [facility]. Tissue Density: The breasts are heterogeneously dense, which may obscure small masses. Findings: Analyzed By CAD. There is no suspicious group of microcalcifications or new suspicious mass. Overall Assessment: Negative, BI-RAD 1 Management: Screening Mammogram of both breasts in [address] [facility] will attempt to contact patient to return for supplemental views and ultrasound if indicated. Patient should continue monthly self-breast exams. A clinical breast exam by your physician is recommended on an annual basis. This exam should not preclude additional follow-up of suspicious palpable abnormalities. Note on Lena scores and lifetime risk: 1. A Lena score greater than 3% is considered moderate risk. If this is the case, consider specialist referral to assess eligibility for a risk reducing agent. 2. If overall lifetime risk for the development of breast cancer is 20% or higher, the patient may qualify for future screening with alternating mammogram and breast MRI. Electronically signed and approved by: Elmer Bazan DO
== END | disposition home or self-care (01) ==
LOC: RADMAMWWP 14:52
PROVIDERS: ATTEND Family Medicine
DX: Z12.31 Encounter for screening mammogram for malignant neoplasm of breast (principal); Z78.0 Asymptomatic menopausal state; Z80.3 Family history of malignant neoplasm of breast
CPT/HCPCS: 77063; 77067

== ENCOUNTER 2023-06-06 06:03 | Day surgery (SDC) | payer BC ==
--- NOTE | 2023-06-03 13:04 | P.HPOR ---
History of Present Illness H&P Date: 06/03/23 Subjective: This is a 62 year old female that presents today for initial evaluation regarding a 6 month history of a progressively worsening and painful right small finger soft tissue mass. She states she first noticed the mass approximately 1 year ago. However, it has grown in size. She states she has throbbing, especially at nighttime right over the mass. She has pain with any direct pressure over the mass. 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 She denies any numbness or tingling Physical Examination: RUE: AIN/PIN/Radial/Ulnar/Median motor intact. Radial/Ulnar/Median SILT. 2+/4 Radial/Ulnar pulses palpated. 5/5 APB, 5/5 FDI. Negative Finkelsteins, negative CMC grind, negative Durkan's compression. Right small finger soft tissue mass present in subcutaneous tissues, approximately 5x5mm along ulnar boarder of 5th MCP joint. TTP over mass. Imaging: X-Rays of the right hand, 3 view taken in the office today demonstrate no abnormality. Impression: 1.) Right small finger soft tissue mass Plan: Diagnosis and treatment options were discussed with the patient. We discussed continued conservative treatment with observation versus soft tissue mass excision. She wishes to go forward with a right small finger soft tissue mass excision. Risks and benefits of surgery including bleeding, infection, damage to surrounding tissue, need for further surgery, residual numbness were discussed and the patient wished to go forward with surgery. The patient was agreeable with this plan. CC: Dwayne Quintana MD -Alfonzo Lind DO Orthopedic Hand/Upper Extremity Surgeon Past Medical History Past Medical History: GERD/Reflux History of Any Multi-Drug Resistant Organisms: None Reported Past Surgical History: Hysterectomy Past Anesthesia/Blood Transfusion Reactions: No Reported Reaction Smoking Status: Former smoker - Past Family History Mother Family Medical History: Cancer Father Family Medical History: No Reported History Medications and Allergies Home Medications Medication Instructions Recorded Confirmed Type No Known Home Medications 08/02/15 06/03/23 History Allergies Allergy/AdvReac Type Severity Reaction Status Date / Time caffeine Allergy Chest Pain Verified 06/03/23 12:03 Penicillins Allergy Rash/Hives Verified 06/03/23 12:03 Physical Examination Osteopathic Statement: *. No significant issues noted on an osteopathic structural exam other than those noted in the History and Physical/Consult.
[2023-06-06] MEDS ORDERED: LACTATED RINGERS 1,000 ML IV SCH (06:29)
[2023-06-06] MEDS: LACTATED RINGERS 1,000 ML IV ONE (06:39)
[2023-06-06] MEDS: DEXAMETHASONE SOD PHOSPHATE 4 MG/ML 1 ML VIAL IVP ONE ×2 (06:51)
[2023-06-06] MEDS: ONDANSETRON 4 MG/2 ML VIAL ONE (06:51)
[2023-06-06 06:57] VITALS: TEMP 97.3
[2023-06-06] MEDS ORDERED: HYDROmorphone 0.5 MG/0.5 ML SYRINGE IVP PRN (07:00)
[2023-06-06] MEDS ORDERED: PROPOFOL 10 MG/ML 20 ML VIAL IV ONE (07:26)
[2023-06-06] MEDS ORDERED: fentaNYL (PF) 50 MCG/ML 2 ML AMP ONE (07:26)
[2023-06-06] MEDS ORDERED: MIDAZOLAM 2 MG/2 ML VIAL ONE (07:26)
[2023-06-06] MEDS: BUPIVACAINE (PF) 0.5% 30 ML VIAL SQ ONE (07:33)
[2023-06-06] MEDS: LIDOCAINE 1% INJ 10MG/ML (20 ML MDV) SQ ONE (07:33)
--- NOTE | 2023-06-06 08:00 | P.OP ---
Date of Procedure: 06/06/23 Preoperative Diagnosis: Right hand soft tissue mass Postoperative Diagnosis: Right hand soft tissue mass Procedure(s) Performed: Right hand soft tissue mass excision Anesthesia: MAC Surgeon: Alfonzo Lind [employer] Fleet Supervisor #1: Gunnar Dos Santos Estimated Blood Loss (ml): 0 Pathology: other (Right hand soft tissue mass) Condition: stable Disposition: PACU Description of Procedure: This is a 62 year old female who presents today for a right hand soft tissue mass excision. Risks and benefits of surgery were discussed with the patient including bleeding, damage to surrounding tissue, infection, need for further surgery as well as risks of anesthesia including pulmonary embolism and even and the patient wished to proceed with surgical intervention. The patient was seen in the pre-operative area by myself. Consent and H&P were completed and updated. The correct extremity was marked in the pre-operative area by myself and all other questions were answered. Operative Narrative: The patient was brought to the operating room by the department of anesthesia. They remained on the portable stretcher and a rolling hand table was brought to the side of the operative extremity. Pre-operative time out was performed indicating the correct patient, procedure and laterality. All in the room agreed. Pre-operative antibiotics were given prior to skin incision. The patient was then drifted off to sleep by the department of anesthesia. Digital block was performed with 7cc's of 0.5% Lidocaine and 1% lidocaine in a 50:50 mixture. A nonsterile tourniquet was then applied to the operative extremity and the right upper extremity was then prepped and draped in normal sterile fashion. The operative extremity was the exsanguinated with an esmarch bandage and the tourniquet was inflated to 250mmHg. Longitudinal incision was made over the ulnar boarder of the 5th metcarpal over the area of the mass with 15 blade scalpel. Blunt dissection was taken through subcutaneous tissues taking care to protect the dorsal sensory branches of the ulnar nerve. A [id number] round white mass was identified in the subcutaneous tissues and this was excised. Skin was closed with 4-0 monocryl sutures and steri strips. Tourniquet was let down and the hand had immediate perfusion.The patient was then woken by the department of anesthesia and transferred to PACU in stable condition. Gunnar SANTILLAN was present to assist in manipulation of the hand. Alfonzo Lind D.O. Orthopedic Hand/Upper Extremity Surgeon
[2023-06-06 08:28] VITALS: BP 128/75; PULSE 58; RESP 16
== END 2023-06-06 08:24 | disposition home or self-care (01) ==
LOC: OR 06:03
PROVIDERS: ATTEND Orthopaedic Surgery Hand Surgery
DX: D21.11 Benign neoplasm of connective and other soft tissue of right upper limb, including shoulder (principal); K21.9 Gastro-esophageal reflux disease without esophagitis; Z87.891 Personal history of nicotine dependence; Z88.0 Allergy status to penicillin; Z90.710 Acquired absence of both cervix and uterus; Z91.018 Allergy to other foods
CPT/HCPCS: 26115; 88305; 88342; 88341; J2250; J1100; J2405; J2001; J3010; J2704; J0665